=== PATIENT | female | born 1935 | race Caucasian/White ===

== ENCOUNTER 2024-06-04 18:45 | Emergency (ER) | payer OTHER ==
[~2024-06-04] VITALS: Ht 154.9 cm; Wt 39.6 kg
[~2024-06-04 18:45] MED LIST: AUGMENTIN 875-1 EACH PO
[2024-06-04] MEDS ORDERED: ROSUVASTATIN CA10 MG PO (19:37)
[2024-06-04] MEDS ORDERED: CITALOPRAM HBR10 MG PO (19:37)
[2024-06-04] MEDS ORDERED: LANSOPRAZOLE30 MG PO (19:38)
[2024-06-04] MEDS ORDERED: DRIMINATE50 MG PO (19:38)
[2024-06-04] MEDS ORDERED: ASPIRIN81 MG PO (19:38)
[2024-06-04] MEDS ORDERED: LEVOTHYROXINE100 MC2 PO (19:38)
[2024-06-04] MEDS ORDERED: HYDROCODONE/ACETA 5/325 TAB PO ONE (19:45)
[2024-06-04] MEDS ORDERED: HYDROCODON-ACE1 EA10 PO (21:18)
[2024-06-04] MEDS ORDERED: HYDROCODONE BIT/ACETAMINOPHEN 5/325 MG 1 TAB HOME.PACK PO ONE (21:30)
[2024-06-04 21:39] VITALS: BP 178/68
== END 2024-06-04 21:39 | disposition home or self-care (01) ==
LOC: ED 18:45
DX: S20.212A Contusion of left front wall of thorax, initial encounter (principal); W22.09XA Striking against other stationary object, initial encounter; Y93.K1 Activity, walking an animal; Z88.5 Allergy status to narcotic agent; Z79.899 Other long term (current) drug therapy; Z79.82 Long term (current) use of aspirin; Z79.890 Hormone replacement therapy
CPT/HCPCS: 71101; 99283; A9270

== ENCOUNTER 2025-02-18 15:05 | Emergency (ER) | payer MEDICARE ==
[~2025-02-18] VITALS: Ht 154.9 cm; Wt 58.0 kg
[~2025-02-18 15:05] MED LIST changes: +ASPIRIN81 MG PO; +CITALOPRAM HBR10 MG PO; +DRIMINATE50 MG PO; +HYDROCODON-ACE1 EA10 PO; +LANSOPRAZOLE30 MG PO; +LEVOTHYROXINE100 MC2 PO; +ROSUVASTATIN CA10 MG PO
[2025-02-18] MEDS ORDERED: ACETAMINOPHEN-1 EAC1 PO (16:20)
[2025-02-18] MEDS ORDERED: PROPRANOLOL HCL80 M1 PO (16:21)
[2025-02-18 16:44] LABS: BILIRUBIN, URINE NEGATIVE (negative); BLOOD/HGB, URINE NEGATIVE (Negative); KETONE, URINE NEGATIVE (Negative); LEUK ESTERASE, URINE NEGATIVE (negative); NITRITE, URINE NEGATIVE (negative); PH, URINE 5.5 (5-7)
[2025-02-18 16:45] LABS: BASOPHILS 1.6 % (0.1-1.2); EOSINOPHILS 4.5 % (0.7-5.8); HEMATOCRIT 37.7 % (34.1-44.9); HEMOGLOBIN 12.4 g/dL (11.2-15.7); LYMPHOCYTES 22.3 % (19.3-51.7); MCH 34.1 PG (25.6-32.2); MCHC 32.9 g/dL (32.2-35.5); MCV 103.6 fL (79.4-94.8); MONOCYTES 6.1 % (4.7-12.5); NEUTROPHILS 64.9 % (34.0-71.1); PLATELET COUNT 293 K/uL (182-369); RBC 3.64 M/uL (3.93-5.22)
[2025-02-18 16:51] LABS: RED BLOOD CELLS, URINE 0-1 /hpf (0-5)
[2025-02-18 16:52] LABS: CRYSTALS, URINE NONE SEEN (0-1+); EPITHELIAL CELLS, URINE SQUAMOUS 1+ /lpf (0-1+)
[2025-02-18 16:53] LABS: CASTS, URINE GRANULAR 3+ \\lpf
[2025-02-18 16:55] LABS: BACTERIA, URINE 1+ /hpf (negative)
[2025-02-18 16:55] LABS: ALBUMIN 4.2 g/dL (3.4-5.0); ALBUMIN/GLOBULIN RATIO 1.2 (1.1-2.4); ANION GAP 20.2 (7-21); BILIRUBIN, TOTAL 0.5 mg/dL (0.2-1.0); BUN/CREATININE RATIO 20.7 (6.0-28.6); CALCIUM 9.4 mg/dL (8.5-10.1); CREATININE, SERUM 2.27 mg/dL (0.55-1.02); POTASSIUM 5.2 mmol/L (3.5-5.1); PROTEIN, TOTAL 7.7 g/dL (6.4-8.2)
[2025-02-18 16:56] LABS: COLLECTION TYPE, URINE CLEAN CATCH; REFLEX CULTURE, URINE No (No)
[2025-02-18 18:58] VITALS: BP 142/71
--- NOTE | 2025-02-18 22:30 | EKG ---
[facility] [address] [facility] [place] [address] Signed Normal sinus rhythm Normal ECG No previous ECGs available Confirmed by Nicki Haley MD () on 02/18/2025 10:30:18 PM Electronically Signed By: NICKI HALEY MD 02/18/[id number] PATIENT NAME: MARJ SANCHEZ Electrocardiogram DATE OF : 39 PHYSICIAN: NICKI HALEY MD REPORT #: [id number] REPORT IS CONFIDENTIAL AND NOT TO BE RELEASED WITHOUT AUTHORIZATION
== END 2025-02-18 19:05 | disposition home or self-care (01) ==
LOC: ED 15:05
PROVIDERS: Emergency Medicine
DX: R42 Dizziness and giddiness (principal); Z88.5 Allergy status to narcotic agent
CPT/HCPCS: 36415; 51701; 70450; 80053; 81001; 85025; 93005; 93010; 99284-25

== ENCOUNTER 2025-07-16 15:39 | Observation (INO) | payer MEDICARE ==
[~2025-07-16] VITALS: Ht 154.9 cm; Wt 40.3 kg
[~2025-07-16 15:39] MED LIST changes: +ACETAMINOPHEN-1 EAC1 PO; +PROPRANOLOL HCL80 M1 PO
[2025-07-16] MEDS ORDERED: IBLOOD GLUCOSE TEST STRIP 1 EA TEST VI ONE (16:00)
[2025-07-16] MEDS ORDERED: CALCITONIN-SAL3.7 ML NAS (16:04)
[2025-07-16] MEDS ORDERED: ONDANSETRON HCL4 MG PO (16:04)
[2025-07-16 16:09] LABS: BASOPHILS 1.1 % (0.1-1.2); EOSINOPHILS 3.5 % (0.7-5.8); LYMPHOCYTES 27.0 % (19.3-51.7); MCH 33.0 PG (25.6-32.2); MCHC 31.8 g/dL (32.2-35.5); MCV 103.6 fL (79.4-94.8); MONOCYTES 8.4 % (4.7-12.5); NEUTROPHILS 59.6 % (34.0-71.1); RBC 3.03 M/uL (3.93-5.22)
[2025-07-16 16:30] LABS: ALCOHOL, MEDICAL <3 ng/dL (<3); ALT (SGPT) 34 U/L (14-59); AST (SGOT) 23 U/L (15-37); GLOMERULAR FILTRATION RATE,EST 25 mL/min (>60); PROTEIN, TOTAL 6.4 g/dL (6.4-8.2); UREA NITROGEN 36 mg/dL (7-18)
[2025-07-16 17:17] LABS: BLOOD/HGB, URINE TRACE-I (Negative); KETONE, URINE NEGATIVE (Negative); LEUK ESTERASE, URINE SMALL (negative); NITRITE, URINE NEGATIVE (negative)
[2025-07-16 17:27] LABS: BACTERIA, URINE RARE /hpf (negative); CASTS, URINE NONE SEEN \\lpf; CRYSTALS, URINE NONE SEEN (0-1+); EPITHELIAL CELLS, URINE NONE SEEN /lpf (0-1+); REFLEX CULTURE, URINE No (No)
[2025-07-16 17:31] LABS: AMPHETAMINES, URINE NEGATIVE (NEGATIVE); BARBITURATES, URINE NEGATIVE (NEGATIVE); BENZODIAZEPINE, URINE NEGATIVE (NEGATIVE); CANNABINOID, URINE NEGATIVE (NEGATIVE); COCAINE, URINE NEGATIVE (NEGATIVE); ECSTASY, URINE NEGATIVE (NEGATIVE); FENTANYL, URINE NEGATIVE (NEGATIVE); METHADONE, URINE NEGATIVE (NEGATIVE); OPIATES, URINE POSITIVE (NEGATIVE); OXYCODONE, URINE NEGATIVE (NEGATIVE); PHENCYCLIDINE, URINE NEGATIVE (NEGATIVE)
[2025-07-16] MEDS ORDERED: ACETAMINOPHEN 325 MG TAB PO PRN (18:45)
[2025-07-16] MEDS ORDERED: CLOPIDOGREL BISULFATE 75 MG TAB PO SCH (18:48)
[2025-07-16] MEDS ORDERED: ASPIRIN 325 MG TAB PO ONE (19:00)
[2025-07-16 20:04] VITALS: BP 142/65
--- NOTE | 2025-07-16 20:35 | NUR ---
pt ARRIVED TO THE FLOOR VIA STRETCHER. pt TRANSFERED SELF TO THE BED. ASSESSMENT, VITAL SIGNS AND ADMISSION DONE. pt HAS "WORD SALAD" BUT NO OTHER DEFICITS. WATER REFRESHED. SNACK PROVIDED. pt DENIES ANY OTHER NEEDS AT THIS TIME. CALL LIGHT WITHIN REACH. BED ALARM ON.
--- NOTE | 2025-07-16 20:35 | NUR ---
pt ARRIVES TO ER VIA STRETCHER WITH VARNISH FINISHER. PIVOTS WITH CANE SBA TO BED. DYSPHASIA NOTED, INNAPPROPIRATE REPONSES TO QUESTIONS. [place] [facility] [facility] WITH DAUGHTER. RN IN ROOM COMPLETING ASSESSMENT, BEDSIDE SWALLOW EVAL. CALL LIGHT PROVIDED, EDUCATION PROVIDED TO pt. BED ALARM ON.
--- NOTE | 2025-07-16 21:00 | NUR ---
SBA PATIENT GOT UP TO THE BATHROOM TO VOID. PATIENT IS WEARING HER HOME PANTS AND HOME UNDERWEAR WITH FRANCOISE PAD AND STILL DRY. PATIENT IS BACK IN BED. PATIENT IS TALKING SOME WORDS REPEATEDLY AND NOT CLEAR. WARM BLANKET PROVIDED. BED ALARM ACTIVATED FOR SAFETY. CALL LIGHT ON PATIENTS HAND.
[2025-07-16 22:18] VITALS: BP 142/65
--- NOTE | 2025-07-16 22:38 | EKG ---
[facility] [address] [facility] [place] [address] Signed Normal sinus rhythm Normal ECG When compared with ECG of 18-FEB-2025 16:54, No significant change was found Confirmed by Nicki Haley MD () on 07/16/2025 10:38:11 PM Electronically Signed By: NICKI HALEY MD 07/16/25 [id number] PATIENT NAME: SANCHEZMARJ Electrocardiogram DATE OF : 39 PHYSICIAN: NICKI HALEY MD REPORT #: [id number] REPORT IS CONFIDENTIAL AND NOT TO BE RELEASED WITHOUT AUTHORIZATION
--- NOTE | 2025-07-16 23:14 | NUR ---
pt RESTING IN THE BED WITH EYES CLOSED. RR EVEN AND UNLABORED. CALL LIGHT WITHIN REACH.
[2025-07-17] VITALS (8 sets, daily range): BP systolic 111–141; BP diastolic 58–70
--- NOTE | 2025-07-17 02:09 | NUR ---
IN RM WITH OPERATIONS SUPPORT REPRESENTATIVE TO DO VITAL SIGNS. pt STILL HAS DYSPHASIA WITH NO OTHER DEFICITS. pt DENIES ANY OTHER NEEDS AT THIS TIME. CALL LIGHT WITHIN REACH.
--- NOTE | 2025-07-17 03:22 | NUR ---
pt RESTING IN THE BED WITH EYES CLOSED. RR EVEN AND UNLABORED. CALL LIGHT WITHIN REACH.
[2025-07-17 05:20] LABS: BASOPHILS 1.2 % (0.1-1.2); EOSINOPHILS 4.0 % (0.7-5.8); LYMPHOCYTES 21.3 % (19.3-51.7); MCH 33.3 PG (25.6-32.2); MCHC 32.3 g/dL (32.2-35.5); MCV 103.1 fL (79.4-94.8); MONOCYTES 9.3 % (4.7-12.5); NEUTROPHILS 63.5 % (34.0-71.1); RBC 2.88 M/uL (3.93-5.22)
--- NOTE | 2025-07-17 05:35 | NUR ---
IN RM TO DO VITAL SIGNS. pt UP TO THE BR, SBA. WATER REFRESHED. pt DENIES ANY NEEDS AT THIS TIME. CALL LIGHT WITHIN REACH. pt STILL HAS SOME DYSPHASIA WITH NO OTHER DEFICITS.
[2025-07-17 05:37] LABS: ALT (SGPT) 30.0 U/L (14-59); AST (SGOT) 22.0 U/L (15-37); CHOLESTEROL/HDL RATIO 1.5; GLOMERULAR FILTRATION RATE,EST 27.0 mL/min (>60); LDL CHOLESTEROL 14.0 mg/dL (< 129); NON-HDL CHOLESTEROL 24.0; PHOSPHORUS, INORGANIC 4.2 mg/dL (2.5-4.9); PROTEIN, TOTAL 5.7 g/dL (6.4-8.2); UREA NITROGEN 35.0 mg/dL (7-18); VLDL CHOLESTEROL 10.0
--- NOTE | 2025-07-17 07:10 | NUR ---
REPORT RECIEVED FROM AUSTIN MATSON. PT IS RESTING IN BED WITH EYES CLOSED, RR EVEN AND UNLABORED. CALL LIGHT AND PERSONAL BELONGINGS ARE WITHIN REACH.
[2025-07-17] MEDS ORDERED: ASPIRIN 81 MG CHEW PO SCH (08:00)
--- NOTE | 2025-07-17 08:05 | NUR ---
UR CLINICAL REVIEW: 2 MN FOR VERSALUS-PER KIER BOILER MEETS OBS FOR R/O CVA/APHASIA WITH NEED FOR MRI, ECHO, PT/OT/ST. MEDICARE OBS 07/16/25 @ 8899 ORDER MATCHES REG NO AUTH REQUIRED PER MEDICARE GUIDELINES DISCHARGE TO HOME WHEN STABLE. ADD: 07/17/25 07/18/25
--- NOTE | 2025-07-17 08:24 | NUR ---
PATIENT IN BED AT THIS TIME. SOCIETY EDITOR CHARTED HOURLY ROUNDS. CALL LIGHT WITHIN REACH, NO FURTHER NEEDS.
--- NOTE | 2025-07-17 08:53 | NUR ---
ULTRASOUND IS IN THE ROOM AT THIS TIME.
[2025-07-17] MEDS ORDERED: ENOXAPARIN SODIUM 30 MG/0.3 ML SYR SUB-Q SCH (09:00)
--- NOTE | 2025-07-17 09:50 | NUR ---
PATIENT IS WORKING WITH PHYSICAL THERAPY AT THIS TIME.
--- NOTE | 2025-07-17 10:30 | NUR ---
ECHO IS IN THE ROOM AT THIS TIME.
--- NOTE | 2025-07-17 10:46 | NUR ---
PATIENT IS LYING IN BED WITH HOB ELEVATED AND WORKING ON BREAKFAST. PATIENT WITH EYES OPEN AND RESPIRATIONS ARE EVEN AND UNLABORED. PATIENT WITH TWO VISITORS IN THE ROOM. FULL ASSESSMENT COMPLETE AND DOCUMENTED IN THE CHART. PATIENT EXPRESSES JUST WANTING TO GO HOME. PATIENT EDUCATED ON MRI AT 1300. PATIENT AND FAMILY EXPRESSED UNDERSTANDING. PATIENT AND FAMILY STATED NO FURTHER NEEDS AT THIS TIME. CALL LIGHT AND PERSONAL BELONGINGS ARE WITHIN REACH.
--- NOTE | 2025-07-17 10:54 | NUR ---
PATIENT IN BED AT THIS TIME. CATALOG LIBRARIAN ASSISTED PATIENT TO BATHROOM AND THEN BACK TO BED. CATALOG LIBRARIAN ALSO CHARTED VITALS AND I&O'S. CALL LIGHT WITHIN REACH, NO FURTHER NEEDS.
--- NOTE | 2025-07-17 11:19 | NUR ---
OT WORKING WITH PT AT THIS TIME.
[2025-07-17] MEDS ORDERED: PHARMACY RENAL DOSE ADJUSTMENT 1 DOSE MISC PO SCH (12:00)
--- NOTE | 2025-07-17 12:08 | NUR ---
PATIENT IS LYING IN BED WITH HOB ELEVATED. PATIENT WITH EYES OPEN AND RESPIRATIONS ARE EVEN AND UNLABORED. PATIENT IS EATING LUNCH. FRESH CUP OF ICE WATER PROVIDED. PATIENT WITH VISITORS SITTING IN THE ROOM AT THIS TIME. PATIENT AND FAMILY REPORTED NO FURTHER NEEDS. CALL LIGHT AND PERSONAL BELONGINGS ARE WITHIN REACH.
--- NOTE | 2025-07-17 12:25 | NUR ---
PT SITTING UP IN BED, VISITING WITH FAMILY MEMBER IN ROOM AT THIS TIME. CALL LIGHT AND LUNCH TRAY WITHIN REACH.
--- NOTE | 2025-07-17 13:54 | NUR ---
PT IN BED, FAMILY IN ROOM. FLOWER KHAN, IN ROOM GETTING VS. CALL LIGHT WITHIN REACH.
--- NOTE | 2025-07-17 13:56 | NUR ---
PATIENT IN BED AT THIS TIME. DIE REAMER CHARTED VITALS AND I&O'S. CALL LIGHT WITHIN REACH, NO FUTHER NEEDS.
[2025-07-17] MEDS ORDERED: CLOPIDOGREL75 MG PO (14:10)
[2025-07-17] MEDS ORDERED: ROSUVASTATIN CA10 MG PO (14:26)
== END 2025-07-17 15:15 | disposition home or self-care (01) ==
LOC: ED 15:39 → MS 15:40
PROVIDERS: Emergency Medicine; ADMIT Family Medicine; ATTEND Family Medicine
DX: I63.89 Other cerebral infarction (principal); R47.01 Aphasia; N18.9 Chronic kidney disease, unspecified; E03.9 Hypothyroidism, unspecified; Z88.8 Allergy status to other drugs, medicaments and biological substances; Z79.890 Hormone replacement therapy
CPT/HCPCS: 36415; 70450; 70551; 71045; 80053; 80061; 80307; 81001; 83036; 83735; 84100; 84484; 85025; 92507; 92523; 93005; 93010; 93306; 93880; 96372; 97162; 97166; 97530; 97535; 99285-25; A9270; G0378; G0480; J1650

== ENCOUNTER 2025-09-08 11:33 | Emergency (ER) | payer MEDICARE ==
[~2025-09-08] VITALS: Ht 154.9 cm; Wt 43.9 kg
[~2025-09-08 11:33] MED LIST changes: +CALCITONIN-SAL3.7 ML NAS; +CLOPIDOGREL75 MG PO; +ONDANSETRON HCL4 MG PO
[2025-09-08 12:13] LABS: BASOPHILS 1.0 % (0.1-1.2); EOSINOPHILS 2.5 % (0.7-5.8); LYMPHOCYTES 22.5 % (19.3-51.7); MCH 33.0 PG (25.6-32.2); MCHC 31.4 g/dL (32.2-35.5); MCV 104.9 fL (79.4-94.8); MONOCYTES 11.9 % (4.7-12.5); NEUTROPHILS 61.1 % (34.0-71.1); RBC 2.64 M/uL (3.93-5.22)
[2025-09-08 12:49] LABS: ALT (SGPT) 72.0 U/L (14-59); AST (SGOT) 42.0 U/L (15-37); GLOMERULAR FILTRATION RATE,EST 28.0 mL/min (>60); PROTEIN, TOTAL 6.5 g/dL (6.4-8.2); UREA NITROGEN 36.0 mg/dL (7-18)
[2025-09-08 13:18] LABS: BLOOD/HGB, URINE NEGATIVE (Negative); KETONE, URINE NEGATIVE (Negative); LEUK ESTERASE, URINE NEGATIVE (negative); NITRITE, URINE NEGATIVE (negative)
[2025-09-08 13:30] VITALS: BP 106/60
== END 2025-09-08 13:53 | disposition home or self-care (01) ==
LOC: ED 11:33
PROVIDERS: Emergency Medicine
DX: S82.001A Unspecified fracture of right patella, initial encounter for closed fracture (principal); D64.9 Anemia, unspecified; I12.9 Hypertensive chronic kidney disease with stage 1 through stage 4 chronic kidney disease, or unspecified chronic kidney disease; N18.9 Chronic kidney disease, unspecified; R53.1 Weakness; W06.XXXA Fall from bed, initial encounter
CPT/HCPCS: 36415; 73560; 80053; 81003; 85025; 99283